=== PATIENT | male | born 1970 | race Caucasian/White ===

== ENCOUNTER 2017-03-01 04:20 | Emergency (ER) | payer OTHER | END 2017-03-01 07:34 | disposition home or self-care (01) | LOC: ER 04:20 | DX: M54.5 Low back pain (principal); G89.29 Other chronic pain; M79.604 Pain in right leg; M79.605 Pain in left leg; F17.210 Nicotine dependence, cigarettes, uncomplicated; M51.36 Other intervertebral disc degeneration, lumbar region; M48.06 Spinal stenosis, lumbar region | CPT/HCPCS: 72131; 96372; 99283-25 ==

== ENCOUNTER 2017-03-30 07:39 | Emergency (ER) | payer OTHER | END 2017-03-30 10:24 | disposition home or self-care (01) | LOC: ER 07:39 | DX: M54.40 Lumbago with sciatica, unspecified side (principal); G89.29 Other chronic pain; F17.210 Nicotine dependence, cigarettes, uncomplicated | CPT/HCPCS: 96372; 99283-25 ==